=== PATIENT | female | born 1930 | race African-American/Black ===

== ENCOUNTER 2017-07-09 12:03 | Inpatient (IN) | payer MEDICARE, MEDICAID ==
[2017-07-09] MEDS ORDERED: Magnesium Sulfate 2 GM/100 ML BAG ONE (12:41)
[2017-07-09 13:08] LABS: #Eosinphils 0.1 thou/uL (0.0-0.7); #Lymphocytes 1.3 thou/uL (1.20-3.40); #Monocytes 0.4 thou/uL (0.11-0.59); #Neutrophils 6.7 thou/uL (1.40-6.50); %Basophils 0.4 % (0.0-1.0); %Eosinophils 1.2 % (0.0-10.0); %Monocytes 4.9 % (0.0-10.0); %Neutrophils 78.5 % (42.0-75.0); Hemoglobin 11.5 g/dL (12.0-16.0); Mean Corpuscular HGB CONC 31.2 g/dL (32.0-36.0); Mean Corpuscular Hemoglobin 28.8 pg (27.0-31.0); Mean Corpuscular Volume 92.3 fl (81.0-99.0); Mean Platelet Volume 7.6 fL (7.4-10.4); Platelet Count 309 thou/uL (130-400); RBC Distribution Width 14.4 % (11.5-14.5); Red Blood Cell (RBC) Count 3.97 mill/uL (4.20-5.40); White Blood Cell (WBC) Count 8.5 thou/uL (4.8-10.8)
[2017-07-09 13:27] LABS: INR-International Normal Ratio 2.3; Prothrombin Time 26.4 SEC (12.0-14.7)
[2017-07-09 13:28] LABS: PTT 42.6 SEC (22.9-36.1)
[2017-07-09 13:34] LABS: ALT (SGPT) 12 U/L (8-55); AST (SGOT) 13 U/L (5-34); Albumin 3.6 g/dL (3.4-4.8); Alkaline Phosphatase 105 U/L (40-150); Anion Gap 16 mmol/L (10-20); BUN (Urea Nitrogen) 13 mg/dL (9.8-20.1); Bilirubin, Total 0.5 mg/dL (0.2-1.2); CK (CPK) 80 U/L (29-168); Calc. Creatinine Clearance 0 mL/min (70-130); Calcium 10.3 mg/dL (7.8-10.44); Carbon Dioxide 24 mmol/L (23-31); Chloride 101 mmol/L (98-107); Estimated GFR-MDRD 74; Globulin 3.8 g/dL (2.4-3.5); Glucose 180 mg/dL (83-110); Lipase 13 U/L (8-78); Potassium 3.8 mmol/L (3.5-5.1); Protein, Total 7.4 g/dL (6.0-8.3); Sodium 137 mmol/L (136-145)
[2017-07-09 13:36] LABS: CKMB 1.7 ng/mL (0-6.6)
[2017-07-09 13:39] LABS: Bilirubin Negative (Negative); Blood, Urine Negative (Negative); Clarity CLEAR (Clear); Glucose, Urine (Dipstick) Negative (Negative); Leukocyte Negative (Negative); Nitrite Negative (Negative); Protein, Urine (Dipstick) Negative (Neg-Trace); Specific Gravity, Urine 1.017 (1.002-1.036); pH, Urine 5.5 (5.0-9.0)
[2017-07-09] MEDS ORDERED: Dexamethasone 10 MG/ML VIAL ONE (13:49)
--- NOTE | 2017-07-09 14:58 | RAD ---
UPRIGHT PORTABLE CHEST 1 VIEW: HISTORY: An 87-year-old female with a history of dyspnea and wheezing. COMPARISON: 02/14/16. FINDINGS: Poor inspiration. Bilateral vascular congestion. Surgical clips in the right axilla and chest wall. Some increased linear and interstitial parenchymal changes in the perihilar regions and lower lung zones raising concern for some mild asymmetric edema or diffuse interstitial atypical pneumonitis. IMPRESSION: Somewhat less than optimal inspiration. Bilateral vascular congestion. Minimal interstitial changes in the perihilar and lower lung zones raising concern for some interstitial edema versus less likely symmetric atypical pneumonitis. POS: [facility]
--- NOTE | 2017-07-09 14:58 | PDOC.EVN ---
Event Note - Event Note Event Note: [id number] H&P Dictated 1. Pneumonia 2. Acute chf exacerbation 3. HTN 4. Chronic anticoagulation plan: see orders
[2017-07-09] MEDS ORDERED: Acetaminophen 325 MG TAB PO PRN (15:12)
[2017-07-09] MEDS ORDERED: HYDROcodone/Acetaminophen 5/325 mg Tablet PO PRN (15:12)
[2017-07-09] MEDS ORDERED: Furosemide 40 MG/4 ML VIAL ONE (15:57)
[2017-07-09 17:24] VITALS: BMI 34.1
[2017-07-09 17:37] LABS: Lactic Acid 5.6 mmol/L (0.5-2.2)
[2017-07-09] MEDS: Simvastatin 40 MG TAB PO SCH (20:28)
[2017-07-09] MEDS: Apixaban 5 MG TAB PO SCH (20:28)
[2017-07-09] MEDS: Donepezil HCl 10 MG TAB PO SCH (20:29)
[2017-07-09 21:01] LABS: Troponin I 0.027 ng/mL (< 0.028)
[2017-07-09] MEDS ORDERED: Guaifenesin DM 100-10/5 ML UDCUP PO PRN (22:55)
[2017-07-09] MEDS ORDERED: Piperacillin/Tazobactam 3.375 GM in Sodium Chloride 0.9% 100 ML IVPB SCH (23:59)
--- NOTE | 2017-07-10 00:40 | HP ---
DATE OF ADMISSION: 07/09/2017 CHIEF COMPLAINT: Dyspnea. HISTORY OF PRESENT ILLNESS: The patient is an 87-year-old female with a past medical history of stroke, hypertension, hypothyroidism, Alzheimer disease, aphasia, constipation, now came to the ER because of troubles breathing. The patient lives in a long term. The patient had trouble breathing, so patient was given Lasix, but the breathing status did not improve, so EMS was called and brought to the ER. Upon ER arrival, the patient was still short of breath, was initial hypoxic, so oxygen was placed in. The patient is a poor historian, so not able to get much history. The patient currently denies any dyspnea. Denies any chest pain. The patient has some history of underlying aphasia. Denies any nausea. Denies any vomiting. PAST MEDICAL HISTORY: As per HPI. PAST SURGICAL HISTORY: Reviewed. SOCIAL HISTORY: No smoking, no alcohol, no drugs. Currently lives in a long term. MEDICATIONS: Reviewed. FAMILY HISTORY: Reviewed from the records. REVIEW OF SYSTEMS: None available from the patient. Positive for dyspnea. Positive for aphasia. Positive for bilateral lower extremity swelling. Other review of systems are not able to obtain from the patient. PHYSICAL EXAMINATION: VITAL SIGNS: At the time of H and P performed, blood pressure is 130/70, pulse ox 93% on nasal cannula, respiratory rate 18. GENERAL: The patient appears comfortable. HEENT: Anterior nares patent.. Tongue is moist. NECK: Supple. No JVD. CARDIOVASCULAR SYSTEM: S1, S2 present. Regular rate and rhythm. No murmurs, no rubs, no gallops. RESPIRATORY SYSTEM: Diminished breath sounds bilaterally. Positive for crackles. No wheezing, no rhonchi. GASTROINTESTINAL: Abdomen is soft nontender, no guarding, no organomegaly, no masses felt. Distended. MUSCULOSKELETAL: Bilateral lower extremity, 2+ pitting edema present. PSYCHIATRIC: Mood appropriate at this time. CRANIAL NERVE SYSTEM: Positive for aphasia, which was chronic. INTEGUMENTARY: No obvious rashes seen. GENITOURINARY: No azevedo LABORATORY DATA: At the time of H and P performed, sodium 137, potassium 3.8, chloride 101, CO2 of 24, BUN of 13, creatinine 0.88. Lactic acid 2.7. Troponin 0.020. BNP 344. PT 26.4, INR 2.3. White count 8.5, hemoglobin 11.5, platelet count 209,000. ASSESSMENT AND PLAN: The patient is an 87-year-old female. 1. Possible pneumonia. Plan to start patient on broad spectrum antibiotics. Plan to monitor the patient closely. 2. Acute congestive heart failure exacerbation, possible systolic. Plan to check 2D echo. Plan to check serial cardiac enzymes. Plan to start patient on IV Lasix 40 b.i.d. 3. History of hypertension. Monitor blood pressure. Continue home blood pressure medications. 4. History of Alzheimer disease. Continue home medications. 5. Chronic anticoagulation secondary to atrial fibrillation. Continue home dose of Coumadin. The case was discussed in detail with the patient. [place]
[2017-07-10 01:11] LABS: Lactic Acid 7.2 mmol/L (0.5-2.2)
[2017-07-10] MEDS: Levothyroxine Sodium 125 MCG TAB PO SCH (06:02)
[2017-07-10] MEDS: Furosemide 40 MG/4 ML VIAL SLOW IVP SCH ×2 (06:02→15:07)
[2017-07-10 06:42] LABS: INR-International Normal Ratio 1.7
[2017-07-10 06:49] LABS: Lactic Acid 4.4 mmol/L (0.5-2.2)
[2017-07-10] MEDS ORDERED: FLU VACC TS2017-18 (>65YR) 0.5 ML SYRINGE IM ONE (09:00)
[2017-07-10] MEDS ORDERED: Escitalopram Oxalate 20 mg Tablet PO SCH (09:00)
[2017-07-10] MEDS ORDERED: Metoprolol Tartrate 25 MG TAB PO SCH (09:00)
[2017-07-10] MEDS ORDERED: Prevnar 13-Val Conj/PF 0.5 ML SYRINGE IM ONE (10:00)
[2017-07-10] MEDS: Apixaban 5 MG TAB PO SCH (11:33)
--- NOTE | 2017-07-10 13:56 | PDOC.PN ---
- Subjective Encounter Start Date: 07/10/17 Encounter Start Time: 13:54 CC; Dyspnea Sub: Pt says she feels better - Objective Vital Signs & Weight: Vital Signs (12 hours) Temp Pulse Resp BP Pulse Ox 07/10/17 12:00 95 07/10/17 11:53 97.9 F 89 20 140/64 85 L 07/10/17 08:00 97.4 F L 86 20 139/69 92 L 07/10/17 04:00 98.3 F 85 22 H 133/67 94 L Weight Weight 200 lb 4.8 oz I&O: 07/09/17 07/10/17 07/11/17 06:59 06:59 06:59 Intake Total 520 200 Output Total 1350 Balance -830 200 Result Diagrams: 07/09/17 12:54 07/09/17 12:54 Additional Labs: Accuchecks 07/10/17 10:56 POC Glucose 331 H Phys Exam - Physical Examination Constitutional: NAD HEENT: moist MMs Neck: no JVD positive rhales, no rhonchi, no accessory muscle usage seen Cardiovascular: RRR, no significant murmur, no rub Gastrointestinal: soft, non-tender, positive bowel sounds distended positive 1-2 plus edema Neurological: non-focal Psychiatric: normal affect Skin: no rash Dx/Plan - Plan Pt is 87 yrs old female now admitted to hospital due to dyspnea. 1. Pneumonia 2. Acute chf exacerbation 3. HTN 4. Chronic anticoagulation 5. H/O HPL 6. H/O Dementia + CVA Plan: 1. Continue iv levaquin. Cultures no growth seen. Repeat CXR in am 2. Continue iv lasix, strict I&O. Check 2d echo to evaluate LV function 3. Monitor bp closely. Continue current treatment 4. Continue statin and will continue home dose of xarelto. 5. Repeat labs in am case d/w pt & RN
[2017-07-10] MEDS ORDERED: Furosemide 40 MG/4 ML VIAL SLOW IVP SCH (14:15)
[2017-07-10 14:32] LABS: #Lymphocytes 0.6 thou/uL (1.20-3.40); #Monocytes 0.6 thou/uL (0.11-0.59); #Neutrophils 13.2 thou/uL (1.40-6.50); %Lymphocytes 4.4 % (21.0-51.0); %Monocytes 4.4 % (0.0-10.0); %Neutrophils 91.1 % (42.0-75.0); Hemoglobin 10.8 g/dL (12.0-16.0); Mean Corpuscular HGB CONC 31.6 g/dL (32.0-36.0); Mean Corpuscular Hemoglobin 28.7 pg (27.0-31.0); Mean Corpuscular Volume 90.8 fl (81.0-99.0); Mean Platelet Volume 7.3 fL (7.4-10.4); Platelet Count 323 thou/uL (130-400); RBC Distribution Width 14.3 % (11.5-14.5); Red Blood Cell (RBC) Count 3.78 mill/uL (4.20-5.40); White Blood Cell (WBC) Count 14.5 thou/uL (4.8-10.8)
[2017-07-10] MEDS ORDERED: Dextrose 5% in Water 1,000 ML IV PRN (14:55)
[2017-07-10] MEDS ORDERED: Dextrose 50% Abboject 50 ML SYRINGE IVP PRN (14:55)
[2017-07-10] MEDS ORDERED: Insulin Regular 300 UNITS/3 ML VIAL SC PRN (14:55)
[2017-07-10 15:38] LABS: BUN (Urea Nitrogen) 21 mg/dL (9.8-20.1); Calc. Creatinine Clearance 54 mL/min (70-130); Calcium 10.7 mg/dL (7.8-10.44); Carbon Dioxide 29 mmol/L (23-31); Estimated GFR-MDRD 58; Glucose 234 mg/dL (83-110)
[2017-07-10 15:46] LABS: Anion Gap 13 mmol/L (10-20); Chloride 97 mmol/L (98-107); Potassium 4.2 mmol/L (3.5-5.1); Sodium 134 mmol/L (136-145)
--- NOTE | 2017-07-10 15:58 | CON ---
DATE OF CONSULTATION: 07/10/2017 REASON FOR CONSULTATION: Acute diastolic heart failure and likely pneumonia. REFERRING PROVIDER: Kenadll Burrows M.D. HISTORY OF PRESENT ILLNESS: Mr. Osuna is an 87-year-old woman who I have seen and evaluated several years ago. She has now been back to the office for followup. She has had an echo performed in 2016 that showed a normal LVEF. Recently, she complained of shortness of breath. The history is limited due to history of dementia and CVA. She denied chest pain, pressure, or other associated symptoms. PAST MEDICAL HISTORY: As above including hypothyroidism, Alzheimer dementia, and aphasia. SOCIAL HISTORY: She resides in a group home. No tobacco or alcohol use. FAMILY HISTORY: Negative for CAD. HOME MEDICATIONS: Zantac, Colace, trazodone, Lopressor, Synthroid, Xarelto, Lasix, Lexapro, Aricept, Namenda, Glucophage and Zocor. REVIEW OF SYSTEMS: Unobtainable. PHYSICAL EXAMINATION: GENERAL: Patient is a pleasant female who is in no acute distress. The patient appears her stated a ge. VITAL SIGNS: Blood pressure 140/64, pulse 89, temperature 97.9. NEUROLOGIC: She is not oriented to time, person or place. HEENT: Sclerae without icterus. Mouth has moist mucous membranes with normal pallor. NECK: No JVD. Carotid upstroke brisk. No bruits bilaterally. LUNGS: Clear to auscultation with unlabored respirations. BACK: No scoliosis or kyphosis. CARDIAC: Regular rate and rhythm with normal S1 and S2. No S3 or S4 noted. No significant rubs, mu rmurs, thrills, or gallops noted throughout the precordium. PMI is not displaced. There is no yamileth ternal heave. ABDOMEN: Soft, nontender, nondistended. No peritoneal signs present. No hepatosplenomegaly. No ab normal striae. EXTREMITIES: 2+ femoral and 2+ dorsalis pedis pulses. No cyanosis, clubbing, or edema. SKIN: No gross abnormalities. LABORATORY DATA: Hemoglobin 10.8, lactic acid peak of 7.2, creatinine 0.88, troponin negative. BNP 344. Chest x-ray somewhat limited. IMPRESSION: 1. Shortness of breath. 2. Dementia. 3. Previous history of cerebrovascular accident. 4. Chronic atrial fibrillation. RECOMMENDATIONS: From a CV standpoint, would continue Xarelto for anticoagulation treatment. She gregorio s had a previous history of CVA. She appears stable from my standpoint. Her BNP is not impressive. We would continue with aspirin, Eliquis, in addition to IV Lasix. We will reevaluate in a.caridad resendiz conservative therapy.
[2017-07-10] MEDS: Vancomycin HCl 1.25 GM in Sodium Chloride 0.9% 250 ML 250 ML IVPB SCH (16:55)
[2017-07-10] MEDS: HumaLOG 300 UNITS/3 ML VIAL SC PRN (16:56)
[2017-07-10] MEDS: Donepezil HCl 10 MG TAB PO SCH (21:53)
[2017-07-10] MEDS: Simvastatin 40 MG TAB PO SCH (21:53)
[2017-07-11] MEDS: Furosemide 40 MG/4 ML VIAL SLOW IVP SCH ×2 (05:24→14:13)
[2017-07-11] MEDS: Levothyroxine Sodium 125 MCG TAB PO SCH (05:24)
[2017-07-11 05:44] LABS: Hemoglobin 10.8 g/dL (12.0-16.0); Platelet Count 314 thou/uL (130-400)
[2017-07-11 05:58] LABS: INR-International Normal Ratio 1.4; Prothrombin Time 17.6 SEC (12.0-14.7)
[2017-07-11 06:21] LABS: Anion Gap 12 mmol/L (10-20); BUN (Urea Nitrogen) 22 mg/dL (9.8-20.1); Calc. Creatinine Clearance 55 mL/min (70-130); Calcium 10.5 mg/dL (7.8-10.44); Carbon Dioxide 30 mmol/L (23-31); Chloride 98 mmol/L (98-107); Estimated GFR-MDRD 63; Glucose 182 mg/dL (83-110); Potassium 3.8 mmol/L (3.5-5.1); Sodium 136 mmol/L (136-145)
[2017-07-11 06:22] LABS: Hemoglobin 10.7 g/dL (12.0-16.0); Mean Corpuscular HGB CONC 31.1 g/dL (32.0-36.0); Mean Corpuscular Hemoglobin 28.3 pg (27.0-31.0); Mean Corpuscular Volume 91.2 fl (81.0-99.0); Mean Platelet Volume 7.4 fL (7.4-10.4); Platelet Count 318 thou/uL (130-400); RBC Distribution Width 14.2 % (11.5-14.5); Red Blood Cell (RBC) Count 3.78 mill/uL (4.20-5.40)
[2017-07-11 06:23] LABS: Lymphocytes 8 % (21-51); MDiff Complete? YES; Monocytes 5 % (0-10); Neutrophil 87 % (42-75)
[2017-07-11] MEDS: HumaLOG 300 UNITS/3 ML VIAL SC PRN ×2 (07:26→17:54)
[2017-07-11] MEDS: Escitalopram Oxalate 10 mg Tablet PO SCH (08:58)
[2017-07-11] MEDS: Rivaroxaban 10 MG TAB PO SCH (08:59)
[2017-07-11] MEDS: Metoprolol Tartrate 50 MG TAB PO SCH (08:59)
--- NOTE | 2017-07-11 09:00 | PRG ---
DATE OF SERVICE: 07/11/2017 SUBJECTIVE: Ms. Osuna's status is unchanged. She has no current complaints. Blood pressure and hea rt rate appear stable. Her echo Doppler dated 07/09/2012 with LVEF 55%-60%. She does have underlyin g atrial fibrillation, so diastolic function difficult to assess. OBJECTIVE: VITAL SIGNS: Blood pressure 142/95, pulse 86, temperature 98. LUNGS: Clear to auscultation. CARDIAC: Irregularly irregular. ABDOMEN: Soft, nontender, nondistended. EXTREMITIES: No edema. IMPRESSION: 1. Pneumonia. 2. Diastolic dysfunction? 3. Atrial fibrillation. RECOMMENDATIONS: Ms. Osuna's rate appears controlled. She is currently on Eliquis and would continu e. I do not appreciate significant crackles noted in her lungs. She is currently on levofloxacin an d we will continue.
--- NOTE | 2017-07-11 13:12 | PDOC.PN ---
- Subjective Encounter Start Date: 07/11/17 Encounter Start Time: 13:23 Subjective: Reports no complaints but limited by dementia -: No acute events overnight. - Objective MAR Reviewed: Yes Vital Signs & Weight: Vital Signs (12 hours) Temp Pulse Resp BP Pulse Ox 07/11/17 11:52 98.2 F 75 18 130/73 98 07/11/17 08:00 98 F 86 20 142/95 H 95 07/11/17 06:46 72 16 96 07/11/17 03:14 98.3 F 78 16 172/80 H 98 Weight Weight 193 lb 6.4 oz I&O: 07/10/17 07/11/17 07/12/17 06:59 06:59 06:59 Intake Total 520 863 Output Total 1350 3050 Balance -830 -7780 Result Diagrams: 07/11/17 05:08 07/11/17 05:08 Additional Labs: Accuchecks 07/11/17 07/11/17 07/10/17 11:39 05:23 22:14 POC Glucose 134 H 181 H 158 H 07/10/17 16:43 POC Glucose 193 H Phys Exam - Physical Examination Constitutional: NAD HEENT: PERRLA, moist MMs, sclera anicteric Neck: supple, full ROM Respiratory: no wheezing, no rhonchi, clear to auscultation bilateral rales b/l lung bases Cardiovascular: no significant murmur, no rub Irregularly irregular. Gastrointestinal: soft, non-tender, no distention, positive bowel sounds Musculoskeletal: no edema, pulses present Unable to cooperate w exam Psychiatric: normal affect Deviation from normal: Alert but oriented x 1 Skin: no rash, normal turgor Dx/Plan (1) Acute diastolic heart failure Code(s): I50.31 - ACUTE DIASTOLIC (CONGESTIVE) HEART FAILURE Status: Acute Plan: Continue mx Comment: Improving. TTE w EF 50-60% Continue diuretics, I/O monitoring and daily weights. (2) PNA (pneumonia) Code(s): J18.9 - PNEUMONIA, UNSPECIFIED ORGANISM Status: Acute Qualifiers: Pneumonia type: due to unspecified organism Laterality: bilateral Lung location: unspecified part of lung Qualified Code(s): J18.9 - Pneumonia, unspecified organism Plan: d/c Vanc Continue levofloxacin, nebs. Comment: Improved. Initially on Vanc + Levofloxacin. Cxs negative to date. (3) History of CVA (cerebrovascular accident) Code(s): Z86.73 - PRSNL HX OF TIA (TIA), AND CEREB INFRC W/O RESID DEFICITS Status: Acute Comment: COntinue statins, ASA (4) Diabetes 1.5, managed as type 2 Code(s): E13.9 - OTHER SPECIFIED DIABETES MELLITUS WITHOUT COMPLICATIONS Status: Chronic Plan: Fairly well controlled. Continue SSI, diabetic diet, hypoglycemia protocol. Comment: On SSI (5) Anemia Code(s): D64.9 - ANEMIA, UNSPECIFIED Status: Chronic Qualifiers: Anemia type: unspecified type Qualified Code(s): D64.9 - Anemia, unspecified Comment: Stable. Will monitor. (6) Atrial fibrillation Code(s): I48.91 - UNSPECIFIED ATRIAL FIBRILLATION Status: Chronic Qualifiers: Atrial fibrillation type: chronic Qualified Code(s): I48.2 - Chronic atrial fibrillation Plan: Monitor. Comment: Rate controlled. On ASA, Eliquis. (7) Dementia Code(s): F03.90 - UNSPECIFIED DEMENTIA WITHOUT BEHAVIORAL DISTURBANCE Status: Chronic Qualifiers: Dementia type: Alzheimer's disease Alzheimer's disease onset: unspecified onset Dementia behavioral disturbance: with behavioral disturbance Qualified Code(s): G30.9 - Alzheimer's disease, unspecified; F02.81 - Dementia in other diseases classified elsewhere with behavioral disturbance; F02.81 - Dementia in other diseases classified elsewhere with behavioral disturbance; F02.81 - Dementia in other diseases classified elsewhere with behavioral disturbance Plan: Monitor. Sitter in place. CM working on placement. Comment: On Escitalopram, Donepezil. (8) CKD (chronic kidney disease) stage 3, GFR 30-59 ml/min Status: Chronic Comment: At goal. (9) Hypothyroidism Code(s): E03.9 - HYPOTHYROIDISM, UNSPECIFIED Status: Acute Qualifiers: Hypothyroidism type: unspecified Qualified Code(s): E03.9 - Hypothyroidism , unspecified Plan: Continue Levofloxacin Comment: Stable on Levofloxacin. - Plan cont current plan of care, continue antibiotics CM to explore placement options * .
[2017-07-11] MEDS: Vancomycin HCl 1.25 GM in Sodium Chloride 0.9% 250 ML 250 ML IVPB SCH (16:51)
[2017-07-11] MEDS: Potassium Chloride 20 MEQ TAB PO SCH (17:55)
[2017-07-11] MEDS: Donepezil HCl 10 MG TAB PO SCH (21:22)
[2017-07-11] MEDS: Simvastatin 40 MG TAB PO SCH (21:22)
[2017-07-12 05:48] LABS: #Eosinphils 0.1 thou/uL (0.0-0.7); #Lymphocytes 0.9 thou/uL (1.20-3.40); #Monocytes 0.7 thou/uL (0.11-0.59); %Basophils 0.3 % (0.0-1.0); %Eosinophils 0.8 % (0.0-10.0); %Lymphocytes 10.8 % (21.0-51.0); %Monocytes 8.3 % (0.0-10.0); %Neutrophils 79.8 % (42.0-75.0); Hemoglobin 11.4 g/dL (12.0-16.0); Mean Corpuscular HGB CONC 30.1 g/dL (32.0-36.0); Mean Corpuscular Hemoglobin 27.4 pg (27.0-31.0); Mean Corpuscular Volume 91.2 fl (81.0-99.0); Mean Platelet Volume 7.4 fL (7.4-10.4); Platelet Count 323 thou/uL (130-400); RBC Distribution Width 14.2 % (11.5-14.5); Red Blood Cell (RBC) Count 4.18 mill/uL (4.20-5.40); White Blood Cell (WBC) Count 8.7 thou/uL (4.8-10.8)
[2017-07-12 05:58] LABS: INR-International Normal Ratio 1.7; Prothrombin Time 20.6 SEC (12.0-14.7)
[2017-07-12] MEDS: Levothyroxine Sodium 125 MCG TAB PO SCH (06:10)
[2017-07-12] MEDS: Furosemide 40 MG/4 ML VIAL SLOW IVP SCH (06:10)
[2017-07-12] MEDS: HumaLOG 300 UNITS/3 ML VIAL SC PRN (06:10)
[2017-07-12 06:15] LABS: Anion Gap 13 mmol/L (10-20); BUN (Urea Nitrogen) 24 mg/dL (9.8-20.1); Calc. Creatinine Clearance 44 mL/min (70-130); Calcium 10.4 mg/dL (7.8-10.44); Carbon Dioxide 31 mmol/L (23-31); Chloride 99 mmol/L (98-107); Estimated GFR-MDRD 49; Glucose 193 mg/dL (83-110); Magnesium 1.9 mg/dL (1.6-2.6); Sodium 139 mmol/L (136-145)
[2017-07-12] MEDS: Potassium Chloride 20 MEQ TAB PO SCH ×2 (09:45→17:25)
[2017-07-12] MEDS: Metoprolol Tartrate 50 MG TAB PO SCH (09:46)
[2017-07-12] MEDS: Furosemide 40 MG TAB PO SCH (09:46)
[2017-07-12] MEDS: Escitalopram Oxalate 10 mg Tablet PO SCH (09:46)
[2017-07-12] MEDS: Rivaroxaban 10 MG TAB PO SCH (09:46)
--- NOTE | 2017-07-12 14:01 | PDOC.PN ---
- Subjective Encounter Start Date: 07/12/17 Encounter Start Time: 14:02 Subjective: Alert. Not answering questions appropriately -: No acute events overnight. -: Unchanged from baseline/ - Objective MAR Reviewed: Yes Vital Signs & Weight: Vital Signs (12 hours) Temp Pulse Resp BP Pulse Ox 07/12/17 11:44 98.8 F 75 18 141/68 H 99 07/12/17 08:21 98.6 F 84 18 96 07/12/17 07:53 98.6 F 84 18 134/70 97 07/12/17 03:40 98.6 F 80 20 127/63 98 Weight Weight 189 lb 9.6 oz I&O: 07/11/17 07/12/17 07/13/17 06:59 06:59 06:59 Intake Total 863 790 Output Total 3050 2400 Balance -2187 -0100 Result Diagrams: 07/12/17 05:09 07/12/17 05:09 Additional Labs: Accuchecks 07/12/17 07/12/17 07/11/17 11:00 05:30 20:51 POC Glucose 172 H 180 H 189 H 07/11/17 16:47 POC Glucose 171 H Phys Exam - Physical Examination Constitutional: NAD HEENT: PERRLA, moist MMs, sclera anicteric Neck: supple, full ROM Respiratory: no wheezing, no rales, no rhonchi, clear to auscultation bilateral Cardiovascular: RRR, no significant murmur, no rub Gastrointestinal: soft, non-tender, no distention, positive bowel sounds Musculoskeletal: no edema, pulses present Neurological: non-focal, moves all 4 limbs Psychiatric: normal affect Deviation from normal: Alert. Not answering questions appropriately. Dx/Plan (1) Acute diastolic heart failure Code(s): I50.31 - ACUTE DIASTOLIC (CONGESTIVE) HEART FAILURE Status: Acute Plan: Continue current management. Comment: Improving. TTE w EF 50-60% Continue diuretics- switched to PO 2/6 Continue I/O monitoring and daily weights. (2) PNA (pneumonia) Code(s): J18.9 - PNEUMONIA, UNSPECIFIED ORGANISM Status: Acute Qualifiers: Pneumonia type: due to unspecified organism Laterality: bilateral Lung location: unspecified part of lung Qualified Code(s): J18.9 - Pneumonia, unspecified organism Plan: Continue current management. Comment: Improved. Initially on Vanc + Levofloxacin. Cxs negative to date. (3) History of CVA (cerebrovascular accident) Code(s): Z86.73 - PRSNL HX OF TIA (TIA), AND CEREB INFRC W/O RESID DEFICITS Status: Acute Comment: COntinue statins, ASA (4) Diabetes 1.5, managed as type 2 Code(s): E13.9 - OTHER SPECIFIED DIABETES MELLITUS WITHOUT COMPLICATIONS Status: Chronic Plan: Continue current management. Comment: On SSI (5) Anemia Code(s): D64.9 - ANEMIA, UNSPECIFIED Status: Chronic Qualifiers: Anemia type: unspecified type Qualified Code(s): D64.9 - Anemia, unspecified Comment: Stable. Will monitor. (6) Atrial fibrillation Code(s): I48.91 - UNSPECIFIED ATRIAL FIBRILLATION Status: Chronic Qualifiers: Atrial fibrillation type: chronic Qualified Code(s): I48.2 - Chronic atrial fibrillation Comment: Rate controlled. On ASA, Eliquis. (7) Dementia Code(s): F03.90 - UNSPECIFIED DEMENTIA WITHOUT BEHAVIORAL DISTURBANCE Status: Chronic Qualifiers: Dementia type: Alzheimer's disease Alzheimer's disease onset: unspecified onset Dementia behavioral disturbance: with behavioral disturbance Qualified Code(s): G30.9 - Alzheimer's disease, unspecified; F02.81 - Dementia in other diseases classified elsewhere with behavioral disturbance; F02.81 - Dementia in other diseases classified elsewhere with behavioral disturbance; F02.81 - Dementia in other diseases classified elsewhere with behavioral disturbance Comment: On Escitalopram, Donepezil. (8) CKD (chronic kidney disease) stage 3, GFR 30-59 ml/min Status: Chronic Comment: Slight bump in Cr 2/2 diuretics. (9) Hypothyroidism Code(s): E03.9 - HYPOTHYROIDISM, UNSPECIFIED Status: Acute Qualifiers: Hypothyroidism type: unspecified Qualified Code(s): E03.9 - Hypothyroidism , unspecified Comment: Stable on Levofloxacin. - Plan cont current plan of care, psychiatric social worker supervisor Awaiting placement. * .
[2017-07-12] MEDS: Donepezil HCl 10 MG TAB PO SCH (20:58)
[2017-07-12] MEDS: Simvastatin 40 MG TAB PO SCH (20:58)
[2017-07-13] MEDS: Levothyroxine Sodium 125 MCG TAB PO SCH (05:15)
[2017-07-13 05:51] LABS: Hemoglobin 12.4 g/dL (12.0-16.0); Platelet Count 322 thou/uL (130-400)
[2017-07-13 05:59] LABS: INR-International Normal Ratio 1.7
[2017-07-13] MEDS: Metoprolol Tartrate 50 MG TAB PO SCH (09:00)
[2017-07-13] MEDS: Rivaroxaban 10 MG TAB PO SCH (09:00)
[2017-07-13] MEDS: Furosemide 40 MG TAB PO SCH (09:01)
[2017-07-13] MEDS: Potassium Chloride 20 MEQ TAB PO SCH (09:01)
[2017-07-13] MEDS: Escitalopram Oxalate 10 mg Tablet PO SCH (09:07)
[2017-07-13] MEDS: HumaLOG 300 UNITS/3 ML VIAL SC PRN (12:51)
[2017-07-13 13:53] LABS: Hemoglobin 11.6 g/dL (12.0-16.0); Mean Corpuscular HGB CONC 30.9 g/dL (32.0-36.0); Mean Corpuscular Hemoglobin 28.3 pg (27.0-31.0); Mean Corpuscular Volume 91.6 fl (81.0-99.0); Platelet Count 322 thou/uL (130-400); RBC Distribution Width 13.9 % (11.5-14.5); Red Blood Cell (RBC) Count 4.09 mill/uL (4.20-5.40)
[2017-07-13 14:15] LABS: Anion Gap 12 mmol/L (10-20); BUN (Urea Nitrogen) 22 mg/dL (9.8-20.1); Calc. Creatinine Clearance 48 mL/min (70-130); Calcium 10.2 mg/dL (7.8-10.44); Carbon Dioxide 28 mmol/L (23-31); Chloride 97 mmol/L (98-107); Estimated GFR-MDRD 55; Glucose 239 mg/dL (83-110); Potassium 3.9 mmol/L (3.5-5.1); Sodium 133 mmol/L (136-145)
[2017-07-13 16:22] VITALS: BP 132/73; TEMP 98.3
--- NOTE | 2017-07-14 06:07 | DIS ---
DATE OF ADMISSION: 07/09/2017 DATE OF DISCHARGE: 07/13/2017 PRIMARY DIAGNOSES: Acute diastolic heart failure and pneumonia. 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 HISTORY OF PRESENT ILLNESS: An 87-year-old female with a past medical history of stroke, hypertensio n, hypothyroidism, Alzheimer's dementia, aphasia, constipation, who came to the ER due to difficulty breathing. She lives in [facility]. She had trouble breathing, so she was given Lasix, but did no t improve, so EMS was called and the patient brought to the ER. At the ER, she was initially hypoxic , so placed on oxygen, due to her clinical status, unable to get much history about the patient. She was found to be in acute heart failure and was started on IV diuretics and admitted for further enrico gement. HOSPITAL COURSE: She was diuresed appropriately with IV furosemide and was euvolemic before discharg e. Cardiology consulted and recommendations were appreciated. She was discharged on p.o. furosemide and is to follow up an outpatient clinic with Cardiology. All the issues addressed during the admis reyna include pneumonia. She was started on broad spectrum antibiotic and she finished her dose of le vofloxacin before discharge. DISCHARGE MEDICATIONS: Aspirin 81 mg daily, levothyroxine 150 mcg daily, metoprolol tartrate 50 mg d , metformin 250 mg daily, simvastatin 20 mg at bedtime, memantine 5 mg twice a day, ipratropium/a lbuterol sulfate 1 puff every 4 hours as needed, escitalopram oxalate 5 mg daily, donepezil 1 tab at bedtime, docusate 100 mg at bedtime, trazodone 250 mg at bedtime, Zantac 150 mg at bedtime, multivita mins 1 tablet daily, Xarelto 20 mg daily, furosemide 40 mg daily. CONSULTS: Cardiology. PHYSICAL EXAMINATION: Vital signs were stable before discharge. VITAL SIGNS: Temperature 98.3 degree Fahrenheit, pulse 73, respirations 20, oxygen saturation 95% on room air, blood pressure 132/73. GENERAL: Not in acute distress, sitting comfortably in bed. HEENT: PERRLA. Moist mucous membranes. Sclerae are anicteric. NECK: Supple, with full range of movement. RESPIRATORY: No wheezes, rales, or rhonchi. LUNGS: Clear to auscultation bilaterally. CARDIOVASCULAR: Regular rate and rhythm. No significant murmurs, rubs, or gallops. GASTROINTESTINAL: Soft, tender, nondistended. Positive bowel sounds. No organomegaly. MUSCULOSKELETAL: No edema. Pulses present. NEUROLOGIC: Nonfocal. Moves all limbs spontaneously, aphasia. PSYCHIATRIC: Normal affect, but unable to answer questions appropriately. SKIN: Warm, dry, and well perfused. LABORATORY DATA: WBC 9, hemoglobin 11.6, hematocrit 37.5, platelets 332. Sodium 133, potassium 3.9, chloride 97, carbon dioxide 28, anion gap 12, BUN 22, creatinine 1.13, glucose 176, calcium 10.2. IMAGING: Chest x-ray taken on 07/09/2017 showed optimal inspiration and with bilateral vascular david estion, minimal interstitial changes in the perihilar and lower lung zones, raising concern for some interstitial edema versus likely symmetrical atypical pneumonitis CONDITION AT DISCHARGE: Stable and improved. PROCEDURES: None. Echocardiogram: Left ventricular ejection fraction 50% to 60%. Diastolic function could not be asse ssed secondary to tachycardia, mild mitral regurgitation with moderate tricuspid regurgitation, and s everely elevated pulmonary artery pressure. DIET: Heart healthy, diabetic. CARE GOALS: To follow up with her primary care physician within 1 week of discharge. ACTIVITY: As tolerated and directed by physical and occupational therapy. TIME OF DISCHARGE: 65 minutes including chart review and documentation.
--- NOTE | 2017-08-20 12:18 | EKG ---
Test Reason : Blood Pressure : / mmHG Vent. Rate : 075 BPM Atrial Rate : 080 BPM P-R Int : 152 ms QRS Dur : 076 ms QT Int : 416 ms P-R-T Axes : 048 054 057 degrees QTc Int : 464 ms Normal sinus rhythm with sinus arrhythmia Nonspecific ST and T wave abnormality Abnormal ECG Confirmed by NEREYDA GUERRERO, RANDI ([id number]), film editor supervisor LIOR JACOME ([id number]) on 08/20/2017 12:18:04 PM Referred By: Confirmed By:RANDI DAWN MD
== END 2017-07-13 16:47 | DRG 291 ==
LOC: ERS 12:03 → ERHOLD 13:41 → 2SE 16:39
PROVIDERS: ADMIT Internal Medicine; ATTEND Internal Medicine
DX: I13.0 Hypertensive heart and chronic kidney disease with heart failure and stage 1 through stage 4 chronic kidney disease, or unspecified chronic kidney disease (principal); J18.9 Pneumonia, unspecified organism; G30.9 Alzheimer's disease, unspecified; E11.22 Type 2 diabetes mellitus with diabetic chronic kidney disease; I48.2 Chronic atrial fibrillation; N18.3 Chronic kidney disease, stage 3 (moderate); F02.80 Dementia in other diseases classified elsewhere, unspecified severity, without behavioral disturbance, psychotic disturbance, mood disturbance, and anxiety; I50.31 Acute diastolic (congestive) heart failure; E03.9 Hypothyroidism, unspecified; I69.320 Aphasia following cerebral infarction; Z79.01 Long term (current) use of anticoagulants; Z79.84 Long term (current) use of oral hypoglycemic drugs; Z79.899 Other long term (current) drug therapy; Z88.0 Allergy status to penicillin; Z88.8 Allergy status to other drugs, medicaments and biological substances
CPT/HCPCS: 36415; 36416; 51702; 71045; 80048; 80053; 81003; 82553; 82565; 83605; 83690; 83735; 83880; 84484; 84550; 85014; 85018; 85025; 85027; 85049; 85610; 85730; 87040; 87086; 87804; 90471; 90670; 90682; 93005; 93306; 93798; 94640; 94644; 96365; 96367; 96375; A4353; G0008; G0009; J1100; J1940; J1956; J3370; J3475; J7050; J7620; Q2036

== ENCOUNTER 2017-07-17 14:17 | Emergency (ER) | payer MEDICARE, MEDICAID ==
[2017-07-17 15:12] LABS: #Eosinphils 0.1 thou/uL (0.0-0.7); #Lymphocytes 1.3 thou/uL (1.20-3.40); #Monocytes 0.6 thou/uL (0.11-0.59); #Neutrophils 7.8 thou/uL (1.40-6.50); %Basophils 0.5 % (0.0-1.0); %Eosinophils 1.4 % (0.0-10.0); %Lymphocytes 13.5 % (21.0-51.0); %Monocytes 5.7 % (0.0-10.0); %Neutrophils 78.9 % (42.0-75.0); Hemoglobin 12.3 g/dL (12.0-16.0); Mean Corpuscular HGB CONC 30.7 g/dL (32.0-36.0); Mean Corpuscular Hemoglobin 28.3 pg (27.0-31.0); Mean Platelet Volume 7.4 fL (7.4-10.4); Platelet Count 313 thou/uL (130-400); Red Blood Cell (RBC) Count 4.35 mill/uL (4.20-5.40); White Blood Cell (WBC) Count 9.9 thou/uL (4.8-10.8)
[2017-07-17 15:36] LABS: PTT 40.8 SEC (22.9-36.1)
[2017-07-17 15:41] LABS: INR-International Normal Ratio 3.2; Prothrombin Time 34.2 SEC (12.0-14.7)
[2017-07-17 15:46] LABS: ALT (SGPT) 13 U/L (8-55); AST (SGOT) 13 U/L (5-34); Albumin 3.6 g/dL (3.4-4.8); Alkaline Phosphatase 105 U/L (40-150); Anion Gap 16 mmol/L (10-20); BUN (Urea Nitrogen) 20 mg/dL (9.8-20.1); Bilirubin, Total 0.3 mg/dL (0.2-1.2); Calc. Creatinine Clearance 0 mL/min (70-130); Calcium 10.8 mg/dL (7.8-10.44); Carbon Dioxide 27 mmol/L (23-31); Chloride 102 mmol/L (98-107); Estimated GFR-MDRD 69; Globulin 3.9 g/dL (2.4-3.5); Glucose 183 mg/dL (83-110); Potassium 4.4 mmol/L (3.5-5.1); Protein, Total 7.5 g/dL (6.0-8.3); Sodium 141 mmol/L (136-145)
== END 2017-07-17 17:41 ==
LOC: ERS 14:17
DX: N93.9 Abnormal uterine and vaginal bleeding, unspecified (principal); E11.9 Type 2 diabetes mellitus without complications; E03.9 Hypothyroidism, unspecified; I10 Essential (primary) hypertension
CPT/HCPCS: 36415; 80053; 82274; 85025; 85610; 85730; 86850; 86900; 86901; 94760

== ENCOUNTER 2017-09-25 11:33 | Inpatient (IN) | payer MEDICARE, MEDICAID ==
[2017-09-25 12:09] LABS: #Basophils 0.1 thou/uL (0.0-0.2); #Lymphocytes 1.1 thou/uL (1.20-3.40); #Monocytes 0.7 thou/uL (0.11-0.59); #Neutrophils 8.8 thou/uL (1.40-6.50); %Basophils 0.7 % (0.0-1.0); %Eosinophils 0.4 % (0.0-10.0); %Lymphocytes 10.3 % (21.0-51.0); %Monocytes 6.9 % (0.0-10.0); %Neutrophils 81.7 % (42.0-75.0); Hemoglobin 11.1 g/dL (12.0-16.0); Mean Corpuscular HGB CONC 30.3 g/dL (32.0-36.0); Mean Corpuscular Hemoglobin 27.8 pg (27.0-31.0); Mean Corpuscular Volume 91.6 fl (81.0-99.0); Mean Platelet Volume 7.5 fL (7.4-10.4); Platelet Count 302 thou/uL (130-400); RBC Distribution Width 15.9 % (11.5-14.5); Red Blood Cell (RBC) Count 3.99 mill/uL (4.20-5.40); White Blood Cell (WBC) Count 10.8 thou/uL (4.8-10.8)
[2017-09-25 12:37] LABS: ALT (SGPT) 66 U/L (8-55); AST (SGOT) 45 U/L (5-34); Albumin 3.7 g/dL (3.4-4.8); Alkaline Phosphatase 130 U/L (40-150); Anion Gap 18 mmol/L (10-20); BUN (Urea Nitrogen) 39 mg/dL (9.8-20.1); Bilirubin, Total 0.5 mg/dL (0.2-1.2); Calc. Creatinine Clearance 0 mL/min (70-130); Calcium 10.1 mg/dL (7.8-10.44); Carbon Dioxide 21 mmol/L (23-31); Chloride 112 mmol/L (98-107); Estimated GFR-MDRD 32; Globulin 3.2 g/dL (2.4-3.5); Glucose 215 mg/dL (83-110); Protein, Total 6.9 g/dL (6.0-8.3); Sodium 146 mmol/L (136-145); Troponin I 0.026 ng/mL (< 0.028)
[2017-09-25 13:00] LABS: Bilirubin Negative (Negative); Blood, Urine Negative (Negative); Clarity CLOUDY (Clear); Glucose, Urine (Dipstick) Negative (Negative); Leukocyte Moderate (Negative); Nitrite Negative (Negative); Protein, Urine (Dipstick) Negative (Neg-Trace); pH, Urine 5.5 (5.0-9.0)
[2017-09-25 13:01] LABS: Bacteria/HPF None Seen HPF (None Seen); Pathc Cast-AUWi Flag 2.32 (0-2.49); RBC/HPF 0-3 HPF (0-3)
[2017-09-25 13:23] LABS: Hyaline Casts/LPF 4-6 HYALINE CAST LPF (0-3 Hyaline); Transitional Epithelial 0-3 HPF (0-3)
[2017-09-25] MEDS ORDERED: Furosemide 40 MG/4 ML VIAL ONE (13:26)
[2017-09-25] MEDS ORDERED: Acetaminophen 325 MG TAB PO PRN ×2 (14:28→15:32)
[2017-09-25] MEDS ORDERED: Dextrose 5% in Water 1,000 ML IV PRN (14:35)
[2017-09-25] MEDS ORDERED: Dextrose 50% Abboject 50 ML SYRINGE SLOW IVP PRN (14:35)
--- NOTE | 2017-09-25 14:42 | RAD ---
PORTABLE FRONTAL CHEST RADIOGRAPH: Date: 09/25/17 COMPARISON: 07/09/17. HISTORY: CHF exacerbation. FINDINGS: There is mild pulmonary vascular congestion. There are postoperative clips in the right axillary francisca on. There is no pneumothorax, lobar consolidation, or alveolar edema. No large volume pleural effusio n. IMPRESSION: Prominent cardiac silhouette and pulmonary vascular congestion with no alveolar edema seen. POS: [facility]
[2017-09-25 15:17] LABS: Troponin I 0.029 ng/mL (< 0.028)
[2017-09-25] MEDS ORDERED: Ondansetron HCl/PF 4 MG/2 ML Vial IVP PRN (15:32)
[2017-09-25] MEDS ORDERED: Ondansetron ODT 4 MG TAB PO PRN (15:32)
--- NOTE | 2017-09-25 15:45 | HP ---
DATE OF ADMISSION: 09/25/2017 CHIEF COMPLAINT: Shortness of breath, altered mental status. HISTORY OF PRESENT ILLNESS: This is an 87-year-old female presenting from the prison, was brou ght to the ER by the prison for shortness of breath. It is unclear exactly what was going on a t the prison. ER unable to obtain a history from the patient. Chart review performed and thus history obtained. The patient does not provide much history. The patient apparently was having david rtness of breath, lower extremity swelling, which was worsening over the past 2-3 days and she was br ought to the emergency room. The patient does have a past medical history after chart review of kidn ey disease, hypertension, heart failure, and hypothyroidism. The patient currently does not answer q uestions properly and keeps nodding her head yes and no inappropriately. The patient has no family a t bedside. Contact attempted to be made by phone to family; however, no response. All history obtai linda from chart review. ALLERGIES: No known drug allergies. PAST MEDICAL HISTORY: Hypothyroidism, hypertension, Alzheimer's, hyperlipidemia, heart failure, paro xysmal atrial fibrillation, and history of CVA. SOCIAL HISTORY: Unobtainable. FAMILY HISTORY: Unobtainable. HOME MEDICATIONS: See MAR. REVIEW OF SYSTEMS: Twelve point review of systems unable to be performed given the patient's mental status. PHYSICAL EXAMINATION: VITAL SIGNS: Blood pressure was 128/88, respiratory rate of 16, heart rate of 88, temperature of 98. HEENT: Pupils equal, round, and react to light and accommodation. Normocephalic, atraumatic. Extra ocular muscles intact. Oral cavity moist and pink. GENERAL: The patient does not appear to be in any discomfort, lying comfortably in bed. CARDIOVASCULAR: Regular rate and rhythm. S1 and S2. Faint murmur appreciated 1/6. LUNGS: Decreased lung sounds bilateral lower lobes, otherwise clear to auscultation bilaterally. ABDOMEN: Positive bowel sounds, soft, nontender, rotund abdomen. EXTREMITIES: 2+ peripheral pulses. Compression stockings noted. 2+ pitting edema even in the prese nce of compression stockings noted. NEUROLOGIC: The patient does not answer questions appropriately, does follow my finger and track me across the room; however, does not answer questions. Withdraw to pain. LABORATORY DATA: CBC abnormalities include hemoglobin of 11.1, RDW 16, neutrophil count at 82%. Bas ic metabolic panel abnormalities include serum sodium of 146, chloride 112, bicarbonate of 21, creati nine of 1.83, BUN of 39. The patient incidentally has a beta natriuretic peptide of 2834. Three day s ago, she had BNP of 1548. ASSESSMENT: 1. Congestive heart failure decompensation. 2. Hypertension. 3. Hypothyroidism. 4. Chronic Alzheimer dementia. 5. History of cerebrovascular accident. 6. Bilateral lower extremity edema. PLAN: At this point in time, admit the patient to Internal Medicine team inpatient status for diures is, patient had a recent echocardiogram performed in 07/2017, which showed an ejection fraction of 55 %-60%; however, diastolic dysfunction was noted, mildly enlarged right ventricular cavity as well as mild to moderate enlargement of the left atrium was also noted. Moderate TR, mild MR and severe elev ated pulmonary pressures were noted. The patient probably is having CHF decompensatory episode witne ssed by the fact that she is having worsening edema as well as rising in BNP. We will start the ajay ent on diuretics. Consider Cardiology consultation if patient's clinical condition status does not i mprove. Continue her home medications as appropriate. Repeat laboratory function in the morning. T he patient's REDDY may be cardiorenal syndrome, type 2. We will monitor and see if there is any improv ement with diuresis, otherwise we will consider renal consultation. No family at bedside. The patie nt has an invalid out of hospital DNR. This will default to a FULL CODE. If family is contact is ray qureshi, we will consider DNR/DNI discussions. We will also call palliative care for further decision michael ing and assistance with code status.
[2017-09-25 17:29] VITALS: BMI 31.7
[2017-09-25] MEDS: Rivaroxaban 10 MG TAB PO SCH (18:18)
[2017-09-25] MEDS: Atorvastatin Calcium 10 MG TAB PO SCH (20:42)
[2017-09-25] MEDS: Famotidine 20 MG TAB PO SCH (20:43)
[2017-09-25] MEDS: Docusate 100 MG CAP PO SCH (20:43)
[2017-09-25] MEDS ORDERED: Famotidine 20 MG TAB PO SCH (21:00)
[2017-09-26] MEDS: Levothyroxine 150 MCG TAB PO SCH (04:47)
[2017-09-26] MEDS: Furosemide 40 MG/4 ML VIAL SLOW IVP SCH ×2 (04:47→14:05)
[2017-09-26 05:12] LABS: #Basophils 0.1 thou/uL (0.0-0.2); #Eosinphils 0.1 thou/uL (0.0-0.7); #Lymphocytes 0.9 thou/uL (1.20-3.40); #Monocytes 0.7 thou/uL (0.11-0.59); #Neutrophils 6.4 thou/uL (1.40-6.50); %Basophils 0.9 % (0.0-1.0); %Eosinophils 0.6 % (0.0-10.0); %Lymphocytes 11.3 % (21.0-51.0); %Neutrophils 79.3 % (42.0-75.0); Hemoglobin 10.5 g/dL (12.0-16.0); Mean Corpuscular HGB CONC 30.5 g/dL (32.0-36.0); Mean Corpuscular Hemoglobin 27.8 pg (27.0-31.0); Mean Corpuscular Volume 91.3 fl (81.0-99.0); Mean Platelet Volume 7.7 fL (7.4-10.4); Platelet Count 257 thou/uL (130-400); RBC Distribution Width 15.5 % (11.5-14.5); Red Blood Cell (RBC) Count 3.77 mill/uL (4.20-5.40); White Blood Cell (WBC) Count 8.1 thou/uL (4.8-10.8)
[2017-09-26 05:27] LABS: Anion Gap 16 mmol/L (10-20); BUN (Urea Nitrogen) 43 mg/dL (9.8-20.1); Calc. Creatinine Clearance 35 mL/min (70-130); Calcium 9.7 mg/dL (7.8-10.44); Carbon Dioxide 25 mmol/L (23-31); Chloride 110 mmol/L (98-107); Estimated GFR-MDRD 34; Glucose 164 mg/dL (83-110); Potassium 4.5 mmol/L (3.5-5.1); Sodium 146 mmol/L (136-145)
--- NOTE | 2017-09-26 08:21 | PDOC.PN ---
- Subjective Encounter Start Date: 09/26/17 Encounter Start Time: 08:19 Subjective: nsg notes rev, mihai ovn, pt very scant verbalization, only intermittently -: answers questions appropriately, oriented to self only after being woken up -: this AM. no new c/o, endorses breathing better - Objective Vital Signs & Weight: Vital Signs (12 hours) Temp Pulse Resp BP Pulse Ox 09/26/17 07:57 98.3 F 51 L 20 120/65 92 L 09/26/17 04:29 98.9 F 84 18 134/70 93 L 09/25/17 20:51 97.3 F L 70 18 94 L 09/25/17 20:46 97.3 F L 70 18 130/60 94 L Weight Weight 208 lb 14.4 oz I&O: 09/25/17 09/26/17 09/27/17 06:59 06:59 06:59 Intake Total 480 Balance 480 Result Diagrams: 09/26/17 04:31 09/26/17 04:31 Additional Labs: Accuchecks 09/26/17 09/25/17 05:48 20:34 POC Glucose 177 H 246 H Phys Exam - Physical Examination Constitutional: NAD lying in hospital bed HEENT: PERRLA, moist MMs, sclera anicteric Neck: no nodes Respiratory: no wheezing, no rales, no rhonchi dec air mvmt, limited ant exam Cardiovascular: RRR, no significant murmur, no rub Gastrointestinal: soft, positive bowel sounds Musculoskeletal: pulses present Psychiatric: normal affect Dx/Plan (1) Acute diastolic heart failure Code(s): I50.31 - ACUTE DIASTOLIC (CONGESTIVE) HEART FAILURE Status: Acute Comment: Improving. TTE w EF 50-60% (2) Atrial fibrillation with RVR Code(s): I48.91 - UNSPECIFIED ATRIAL FIBRILLATION Status: Acute (3) History of CVA (cerebrovascular accident) Code(s): Z86.73 - PRSNL HX OF TIA (TIA), AND CEREB INFRC W/O RESID DEFICITS Status: Acute Comment: COntinue statins, ASA (4) Speech or language deficit following cerebrovascular accident Code(s): I69.328 - OTH SPEECH/LANG DEFICITS FOLLOWING CEREBRAL INFARCTION Status: Acute (5) Dementia Code(s): F03.90 - UNSPECIFIED DEMENTIA WITHOUT BEHAVIORAL DISTURBANCE Status: Chronic Qualifiers: Dementia type: Alzheimer's disease Alzheimer's disease onset: unspecified onset Dementia behavioral disturbance: with behavioral disturbance Qualified Code(s): G30.9 - Alzheimer's disease, unspecified; F02.81 - Dementia in other diseases classified elsewhere with behavioral disturbance; F02.81 - Dementia in other diseases classified elsewhere with behavioral disturbance; F02.81 - Dementia in other diseases classified elsewhere with behavioral disturbance Comment: On Escitalopram, Donepezil. - Plan * . Review of Systems - Medications/Allergies Allergies/Adverse Reactions: Allergies Allergy/AdvReac Type Severity Reaction Status Date / Time Penicillins Allergy Verified 02/14/16 22:28 ziprasidone [From Geodon] Allergy Verified 07/09/17 17:19 Medications: Current Medications Acetaminophen (Tylenol) 650 mg PO Q4H PRN PRN Reason: Headache/Fever or Pain Aspirin (Aspirin Chewable) 81 mg PO DAILY [facility] Atorvastatin Calcium (Lipitor) 10 mg PO HS [facility] Last Admin: 09/25/17 20:42 Dose: 10 mg Dextrose/Water (Dextrose 50%) 25 gm SLOW IVP PRN PRN PRN Reason: Hypoglycemia Docusate Sodium (Colace) 100 mg PO HS [facility] Last Admin: 09/25/17 20:43 Dose: Not Given Famotidine (Pepcid) 20 mg PO 2100 [facility] Last Admin: 09/25/17 20:43 Dose: 20 mg Furosemide (Lasix) 40 mg SLOW IVP 0600,1400 [facility] Last Admin: 09/26/17 04:47 Dose: 40 mg Glucagon (Glucagon) 1 mg IM PRN PRN PRN Reason: Hypoglycemia Dextrose/Water (D5w) 1,000 mls @ 0 mls/hr IV .Q0M PRN; As Directed PRN Reason: Hypoglycemia Insulin Human Lispro (Humalog) 0 units SC .MILD SLIDING SCALE PRN PRN Reason: Mild Correctional Scale Iron/Minerals/Multivitamins (Theragran M) 1 tab PO DAILY [facility] Levothyroxine Sodium (Synthroid) 150 mcg PO 0600 [facility] Last Admin: 09/26/17 04:47 Dose: 150 mcg Memantine (Namenda) 5 mg PO BID [facility] Last Admin: 09/25/17 20:44 Dose: 5 mg Metoprolol Tartrate (Lopressor) 50 mg PO DAILY [facility] Rivaroxaban (Xarelto) 20 mg PO 1700 [facility] Last Admin: 09/25/17 18:18 Dose: 20 mg Sodium Chloride (Flush - Normal Saline) 10 ml IVF Q12HR [facility] Last Admin: 09/25/17 20:44 Dose: 10 ml Sodium Chloride (Flush - Normal Saline) 10 ml IVF PRN PRN PRN Reason: Saline Flush
[2017-09-26] MEDS: Multivitamin W/ Minerals 1 TAB PO SCH (08:30)
[2017-09-26] MEDS: Metoprolol Tartrate 50 MG TAB PO SCH (08:30)
[2017-09-26] MEDS ORDERED: Rivaroxaban 10 MG TAB PO SCH (09:00)
[2017-09-26] MEDS: HumaLOG 300 UNITS/3 ML VIAL SC PRN ×2 (12:20→18:28)
[2017-09-26] MEDS: Rivaroxaban 10 MG TAB PO SCH (18:27)
--- NOTE | 2017-09-26 18:42 | PDOC.EVN ---
Event Note - Event Note Event Note: Dx: CHF, dementia d/w: Danuta Osuna, granddaughter and listed MPOA Summary: Patient already has OOH DNR. Patient's granddaughter stated that the patient, her grandmother, would also want an inpatient DNR/ DNI status but to otherwise continue aggressive medical treatment. Order placed for DNR status.
[2017-09-26] MEDS: Atorvastatin Calcium 10 MG TAB PO SCH (21:04)
[2017-09-26] MEDS: Famotidine 20 MG TAB PO SCH (21:04)
[2017-09-26] MEDS: Docusate 100 MG CAP PO SCH (21:04)
[2017-09-27 05:25] LABS: #Basophils 0.1 thou/uL (0.0-0.2); #Eosinphils 0.1 thou/uL (0.0-0.7); #Lymphocytes 0.9 thou/uL (1.20-3.40); #Monocytes 0.6 thou/uL (0.11-0.59); #Neutrophils 5.6 thou/uL (1.40-6.50); %Basophils 0.8 % (0.0-1.0); %Eosinophils 1.3 % (0.0-10.0); %Lymphocytes 12.8 % (21.0-51.0); %Monocytes 7.8 % (0.0-10.0); %Neutrophils 77.3 % (42.0-75.0); Hemoglobin 10.2 g/dL (12.0-16.0); Mean Corpuscular HGB CONC 30.8 g/dL (32.0-36.0); Mean Platelet Volume 7.6 fL (7.4-10.4); Platelet Count 245 thou/uL (130-400); RBC Distribution Width 15.4 % (11.5-14.5); Red Blood Cell (RBC) Count 3.64 mill/uL (4.20-5.40); White Blood Cell (WBC) Count 7.3 thou/uL (4.8-10.8)
[2017-09-27 05:31] LABS: Anion Gap 9 mmol/L (10-20); BUN (Urea Nitrogen) 42 mg/dL (9.8-20.1); Calc. Creatinine Clearance 39 mL/min (70-130); Calcium 9.6 mg/dL (7.8-10.44); Carbon Dioxide 30 mmol/L (23-31); Chloride 106 mmol/L (98-107); Estimated GFR-MDRD 39; Glucose 147 mg/dL (83-110); Potassium 4.1 mmol/L (3.5-5.1); Sodium 141 mmol/L (136-145)
[2017-09-27] MEDS: Furosemide 40 MG/4 ML VIAL SLOW IVP SCH ×2 (06:21→13:09)
[2017-09-27] MEDS: Levothyroxine 150 MCG TAB PO SCH (06:21)
[2017-09-27] MEDS: Multivitamin W/ Minerals 1 TAB PO SCH (08:27)
[2017-09-27] MEDS: Metoprolol Tartrate 50 MG TAB PO SCH (08:27)
--- NOTE | 2017-09-27 11:08 | PDOC.PN ---
- Subjective Encounter Start Date: 09/27/17 Encounter Start Time: 11:06 Subjective: nsg notes rev, mihai ovn, was woken from sleep for encounter. no new c /o - Objective Resuscitation Status: Resuscitation Status DNR:Do Not Resuscitate Vital Signs & Weight: Vital Signs (12 hours) Temp Pulse Resp BP Pulse Ox 09/27/17 08:00 98.8 F 64 18 93 L 09/27/17 07:35 98.8 F 64 18 150/70 H 93 L 09/27/17 04:00 98.3 F 65 18 135/62 94 L Weight Admit Weight 209 lb Weight 200 lb 4.8 oz I&O: 09/26/17 09/27/17 09/28/17 06:59 06:59 06:59 Intake Total 480 414 Balance 480 414 Result Diagrams: 09/27/17 04:30 09/27/17 04:30 Additional Labs: Accuchecks 09/27/17 09/27/17 09/26/17 10:33 05:42 20:41 POC Glucose 251 H 162 H 252 H 09/26/17 09/26/17 16:38 10:58 POC Glucose 172 H 191 H Phys Exam - Physical Examination Constitutional: NAD laying in hospital bed HEENT: moist MMs, sclera anicteric, oral pharynx no lesions Respiratory: no wheezing, no rales, no rhonchi, clear to auscultation bilateral limited anterior exam Cardiovascular: RRR, no significant murmur, no rub Gastrointestinal: soft, non-tender, positive bowel sounds Musculoskeletal: pulses present Dx/Plan (1) Acute diastolic heart failure Code(s): I50.31 - ACUTE DIASTOLIC (CONGESTIVE) HEART FAILURE Status: Acute Comment: Improving. TTE w EF 50-60% wean off O2 (2) Atrial fibrillation with RVR Code(s): I48.91 - UNSPECIFIED ATRIAL FIBRILLATION Status: Acute (3) History of CVA (cerebrovascular accident) Code(s): Z86.73 - PRSNL HX OF TIA (TIA), AND CEREB INFRC W/O RESID DEFICITS Status: Acute Comment: COntinue statins, ASA (4) Speech or language deficit following cerebrovascular accident Code(s): I69.328 - OTH SPEECH/LANG DEFICITS FOLLOWING CEREBRAL INFARCTION Status: Acute (5) Dementia Code(s): F03.90 - UNSPECIFIED DEMENTIA WITHOUT BEHAVIORAL DISTURBANCE Status: Chronic Qualifiers: Dementia type: Alzheimer's disease Alzheimer's disease onset: unspecified onset Dementia behavioral disturbance: with behavioral disturbance Qualified Code(s): G30.9 - Alzheimer's disease, unspecified; F02.81 - Dementia in other diseases classified elsewhere with behavioral disturbance; F02.81 - Dementia in other diseases classified elsewhere with behavioral disturbance; F02.81 - Dementia in other diseases classified elsewhere with behavioral disturbance Comment: On Escitalopram, Donepezil. - Plan * . Review of Systems - Medications/Allergies Allergies/Adverse Reactions: Allergies Allergy/AdvReac Type Severity Reaction Status Date / Time Penicillins Allergy Verified 02/14/16 22:28 ziprasidone [From Geodon] Allergy Verified 07/09/17 17:19 Medications: Current Medications Acetaminophen (Tylenol) 650 mg PO Q4H PRN PRN Reason: Headache/Fever or Pain Aspirin (Aspirin Chewable) 81 mg PO DAILY [facility] Last Admin: 09/27/17 08:27 Dose: 81 mg Atorvastatin Calcium (Lipitor) 10 mg PO HS [facility] Last Admin: 09/26/17 21:04 Dose: 10 mg Dextrose/Water (Dextrose 50%) 25 gm SLOW IVP PRN PRN PRN Reason: Hypoglycemia Docusate Sodium (Colace) 100 mg PO HS [facility] Last Admin: 09/26/17 21:04 Dose: 100 mg Famotidine (Pepcid) 20 mg PO 2100 [facility] Last Admin: 09/26/17 21:04 Dose: 20 mg Furosemide (Lasix) 40 mg SLOW IVP 0600,1400 [facility] Last Admin: 09/27/17 06:21 Dose: 40 mg Glucagon (Glucagon) 1 mg IM PRN PRN PRN Reason: Hypoglycemia Dextrose/Water (D5w) 1,000 mls @ 0 mls/hr IV .Q0M PRN; As Directed PRN Reason: Hypoglycemia Insulin Human Lispro (Humalog) 0 units SC .MILD SLIDING SCALE PRN PRN Reason: Mild Correctional Scale Last Admin: 09/26/17 18:28 Dose: 2 unit Iron/Minerals/Multivitamins (Theragran M) 1 tab PO DAILY [facility] Last Admin: 09/27/17 08:27 Dose: 1 tab Levothyroxine Sodium (Synthroid) 150 mcg PO 0600 [facility] Last Admin: 09/27/17 06:21 Dose: 150 mcg Memantine (Namenda) 5 mg PO BID [facility] Last Admin: 09/27/17 08:27 Dose: 5 mg Metoprolol Tartrate (Lopressor) 50 mg PO DAILY [facility] Last Admin: 09/27/17 08:27 Dose: 50 mg Rivaroxaban (Xarelto) 20 mg PO 1700 [facility] Last Admin: 09/26/17 18:27 Dose: 20 mg Sodium Chloride (Flush - Normal Saline) 10 ml IVF Q12HR [facility] Last Admin: 09/27/17 08:27 Dose: 10 ml Sodium Chloride (Flush - Normal Saline) 10 ml IVF PRN PRN PRN Reason: Saline Flush Last Admin: 09/27/17 06:21 Dose: 10 ml
[2017-09-27] MEDS: HumaLOG 300 UNITS/3 ML VIAL SC PRN ×3 (11:40→21:49)
[2017-09-27] MEDS: Rivaroxaban 10 MG TAB PO SCH (16:20)
[2017-09-27] MEDS: Famotidine 20 MG TAB PO SCH (20:17)
[2017-09-27] MEDS: Atorvastatin Calcium 10 MG TAB PO SCH (20:18)
[2017-09-27] MEDS: Docusate 100 MG CAP PO SCH (20:48)
[2017-09-27 21:42] LABS: Hemoglobin 10.9 g/dL (12.0-16.0); Platelet Count 239 thou/uL (130-400)
[2017-09-28] MEDS: Furosemide 40 MG/4 ML VIAL SLOW IVP SCH ×2 (05:17→13:55)
[2017-09-28] MEDS: Levothyroxine 150 MCG TAB PO SCH (05:17)
[2017-09-28 06:16] LABS: #Eosinphils 0.1 thou/uL (0.0-0.7); #Monocytes 0.7 thou/uL (0.11-0.59); #Neutrophils 6.3 thou/uL (1.40-6.50); %Basophils 0.3 % (0.0-1.0); %Eosinophils 0.7 % (0.0-10.0); %Lymphocytes 12.2 % (21.0-51.0); %Monocytes 8.8 % (0.0-10.0); %Neutrophils 77.9 % (42.0-75.0); Hemoglobin 10.5 g/dL (12.0-16.0); Mean Corpuscular HGB CONC 30.3 g/dL (32.0-36.0); Mean Corpuscular Hemoglobin 27.4 pg (27.0-31.0); Mean Corpuscular Volume 90.2 fl (81.0-99.0); Platelet Count 258 thou/uL (130-400); RBC Distribution Width 15.4 % (11.5-14.5); Red Blood Cell (RBC) Count 3.82 mill/uL (4.20-5.40); White Blood Cell (WBC) Count 8.1 thou/uL (4.8-10.8)
[2017-09-28 06:18] LABS: Anion Gap 11 mmol/L (10-20); BUN (Urea Nitrogen) 44 mg/dL (9.8-20.1); Calc. Creatinine Clearance 38 mL/min (70-130); Calcium 9.6 mg/dL (7.8-10.44); Carbon Dioxide 29 mmol/L (23-31); Chloride 105 mmol/L (98-107); Estimated GFR-MDRD 37; Glucose 225 mg/dL (83-110); Potassium 4.1 mmol/L (3.5-5.1); Sodium 141 mmol/L (136-145)
[2017-09-28] MEDS: Multivitamin W/ Minerals 1 TAB PO SCH (08:22)
[2017-09-28] MEDS: Metoprolol Tartrate 50 MG TAB PO SCH (08:22)
[2017-09-28 11:05] VITALS: TEMP 98
[2017-09-28] MEDS: HumaLOG 300 UNITS/3 ML VIAL SC PRN (11:42)
[2017-09-28 12:21] VITALS: BP 124/60
--- NOTE | 2017-09-30 21:10 | PQF ---
EDUAR LANGE ROBERT C. M.D. [id number] [facility]-256 [id number] CLINICAL DOCUMENTATION CLARIFICATION FORM: POST DISCHARGE Addendum to original discharge summary date: ____ Late entry note date: __ DATE: 09/30/2017 ATTN: Please exercise your independent, professional judgment in responding to the clarification form. Clinical indicators are provided on the bottom of this form for your review Please check appropriate box(s): [x ] Acute Renal Failure (ARF) / Acute Kidney Injury (REDDY) (Please specify associated condition, if applicable) [ ] Acute Tubular Necrosis (ATN) [ ] Acute Interstitial Nephritis (AIN) [ ] Acute Cortical Necrosis [ ] Acute Medullary Necrosis [ ] Other Etiology or underlying conditions related to the diagnosis of ARF / REDDY: [ ] Acute on Chronic Renal Failure please specify Stage of CKD (see below) [ ] CKD without ARF/REDDY please specify Stage of CKD [ ] ESRD [ ] Other diagnosis [ ] Unable to determine In addition, please specify: Present on Admission (POA): [ ] Yes [ ] No [ x ] Unable to determine National Kidney [employer] Guidelines for CKD Staging Stage I Kidney damage with normal or increased GFR GFR > 90 Stage II Kidney damage with mildly decreased GFR GFR 60-89 Stage III Kidney damage with moderately decreased GFR GFR 30-59 Stage IV Kidney damage with severely decreased GFR GFR 16-29 Stage V Kidney failure GFR<15 ESRD End Stage Renal Disease On dialysis Acute Renal Failure/Acute Kidney Failure defined as: Increases in SCr by (>) 0.3 mg/dl within 48 hours OR- Increases in SCr by (>) 1.5 times baseline, known or presumed to have occurred within the prior 7 days OR- Urine volume < 0.5 ml/kg/hour for 6 hours (KDIGO supplement 2012 for RIFLE/AMBAR criteria) For continuity of documentation, please document condition throughout progress notes and discharge summary. MTDD
== END 2017-09-28 16:32 | disposition home or self-care (01) | DRG 292 ==
LOC: ERS 11:33 → 2NO 15:40
PROVIDERS: ADMIT Internal Medicine; ATTEND Internal Medicine
DX: I11.0 Hypertensive heart disease with heart failure (principal); N17.9 Acute kidney failure, unspecified; G30.9 Alzheimer's disease, unspecified; I48.91 Unspecified atrial fibrillation; F02.80 Dementia in other diseases classified elsewhere, unspecified severity, without behavioral disturbance, psychotic disturbance, mood disturbance, and anxiety; E03.9 Hypothyroidism, unspecified; I50.31 Acute diastolic (congestive) heart failure; I69.320 Aphasia following cerebral infarction; Z88.0 Allergy status to penicillin; Z88.8 Allergy status to other drugs, medicaments and biological substances; Z66 Do not resuscitate
CPT/HCPCS: 36415; 36416; 51701; 71045; 80048; 80053; 81003; 81015; 82553; 83880; 84443; 84484; 85025; 93005; 94760; 96374; A4216; A4353; G8981-GP-CN; G8982-GP-CL; G8996-GN-CI; G8997-GN-CI; J1940